=== PATIENT | female | born 1935 | race Caucasian/White ===

== ENCOUNTER → 2020-05-06 12:34 | Outpatient (CLI) | payer MEDICARE, OTHER, SELFPAY ==
--- NOTE | 2020-05-06 | DI.MRI.S_ITS ---
PROCEDURE: MR HAND RT WO CON INDICATIONS: Pain in right hand TECHNIQUE: Noncontrast coronal T1 spin echo and T2 axial fat sat sequences were obtained. Patient is unable to complete the exam due to pain. COMPARISON: [facility] [place], CR, XR HAND 3+ VIEWS RIGHT, 04/27/2020, 8:45. FINDINGS: Image quality: Limited. Bones: Moderate osteoarthritic changes throughout right hand and wrist are seen. No gross marrow edema. No evidence of acute fracture or dislocation. No suspicious intraosseous lesion. Soft tissues: There is mild soft tissue swelling and edema over dorsal and radial aspect of right hand. No gross full-thickness flexor or extensor tendon rupture. Limited evaluation of right hand ligaments shows no definite full-thickness rupture. Visualized muscles demonstrate normal bulk and internal signal. No intramuscular masses identified. No ganglion cysts. IMPRESSION: 1. Limited study due to poor patient tolerance. Only 2 series were obtained. 2. No gross acute fracture or dislocation. 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 3. Mild dorsal right hand and wrist soft tissue swelling. No discrete drainable fluid collection. No full-thickness tendon rupture. Dictated by: Mateus Bustamante M.D. on 05/06/2020 at 15:02 Approved by: Mateus Bustamante M.D. on 05/06/2020 at 15:08
== END ==
PROVIDERS: PCP Registered Nurse Women's Health Care, Ambulatory; Referring Provider Orthopaedic Surgery Foot and Ankle Surgery; Visit Provider Orthopaedic Surgery Foot and Ankle Surgery
DX: M79.641 Pain in right hand (principal); M79.89 Other specified soft tissue disorders
CPT/HCPCS: 73218

== ENCOUNTER 2023-03-09 18:41 | Emergency (ER) | payer MEDICARE, OTHER, SELFPAY ==
[2023-03-09 18:44] VITALS: BP 117/59; PULSE 100; RESP 15; TEMP 36.9; O2SAT 94; BMI 28.1
--- NOTE | 2023-03-09 19:04 | ED_ITS ---
HPI - Recheck/Abnormal Lab/Rx <Janene Nolen PA-C - Last Filed: 03/09/23 19:08> General Chief Complaint: Recheck/Abnormal Lab/Rx Stated Complaint: Shaking ep. earlier today Time Seen by Provider: 03/09/23 19:04 Source: patient Mode of arrival: Ambulatory History of Present Illness HPI narrative: Patient is an 87-year-old female who was feeling well this morning went and played pickleball but then later in the day had an episode of severe shaking of her upper extremities it lasted for 45 minutes. The shaking was so severe that she could not use her cell phone. After this she felt like she should lay down and take a nap but she could not fall asleep. This episode was very unnerving for her. Overall she feels a little lightheaded and a little fatigued but not unwell. She denies fever or chills, respiratory symptoms, chest pain, nausea vomiting, urinary symptoms. Related Data Previous Rx's Medication Instructions Recorded cephalexin 500 mg capsule 500 mg PO BID 7 days #14 caps 03/09/23 Allergies Allergy/AdvReac Type Severity Reaction Status Date / Time No Known Drug Allergies Allergy Verified 03/09/23 18:44 Review of Systems <Janene Nolen PA-C - Last Filed: 03/09/23 19:08> Review of Systems ROS Unobtainable: All systems reviewed & are unremarkable except as noted in HPI and below Patient History <Janene Nolen PA-C - Last Filed: 03/09/23 19:08> Social History Smoking Status: Unknown if ever smoked Smoking Status: Unknown if ever smoked alcohol intake frequency: holidays/special occasions only Substance Use Type: does not use Exam <Janene Nolen PA-C - Last Filed: 03/09/23 19:08> Narrative Exam Narrative: GENERAL: 87 year old patient appears stated age. Well-developed patient, in no d istress. NEURO: Patient is alert and oriented x3 and with normal mood and affect. Cranial nerves II through XII are intact and there is no appreciable numbness or weakness. No pronator drift, steady gait. HEAD: Atraumatic. Normocephalic. EYES: Pupils equal round and reactive. Extraocular motions intact. No scleral icterus. No injection or drainage. ENT: Nose without bleeding or purulent drainage. CARDIOVASCULAR: Regular rate and rhythm without murmurs, gallops, or rubs. RESPIRATORY: Clear to auscultation. Breath sounds equal bilaterally. No wheezes, rales, or rhonchi. EXTREMITIES: No edema or joint tenderness. SKIN: No rash or erythema of visible areas Initial Vital Signs Initial Vital Signs: Vital Signs Temperature 98.4 F 03/09/23 18:44 Pulse Rate 100 H 03/09/23 18:44 Respiratory Rate 15 03/09/23 18:44 Blood Pressure 117/59 L 03/09/23 18:44 Pulse Oximetry 94 03/09/23 18:44 Oxygen Delivery Method Room Air 03/09/23 18:44 <Roxanne Miller DO - Last Filed: 03/10/23 06:10> Initial Vital Signs Initial Vital Signs: Vital Signs Temperature 98.4 F 03/09/23 18:44 Pulse Rate 100 H 03/09/23 18:44 Respiratory Rate 15 03/09/23 18:44 Blood Pressure 117/59 L 03/09/23 18:44 Pulse Oximetry 94 03/09/23 18:44 Oxygen Delivery Method Room Air 03/09/23 18:44 Course <Janene Nolen PA-C - Last Filed: 03/09/23 19:08> Orders Ordered: Discontinued Medications Cephalexin HCl (Cephalexin 250 Mg Capsule) 500 mg PO NOW ONE Stop: 03/09/23 22:07 Last Admin: 03/09/23 22:20 Dose: 500 mg Documented By: AP Vital Signs Vital signs: Vital Signs - 8 hr 03/09/23 22:19 Pulse Rate 86 Respiratory Rate 16 Blood Pressure 96/55 L Pulse Oximetry 96 Oxygen Delivery Method Room Air <Roxanne Miller DO - Last Filed: 03/10/23 06:10> Orders Ordered: Discontinued Medications Cephalexin HCl (Cephalexin 250 Mg Capsule) 500 mg PO NOW ONE Stop: 03/09/23 22:07 Last Admin: 03/09/23 22:20 Dose: 500 mg Documented By: AP Vital Signs Vital signs: Vital Signs - 8 hr 03/09/23 22:19 Pulse Rate 86 Respiratory Rate 16 Blood Pressure 96/55 L Pulse Oximetry 96 Oxygen Delivery Method Room Air MDM - Recheck/Abnormal Lab/Rx <Janene Nolen PA-C - Last Filed: 03/09/23 19:08> Lab Data 03/09/23 19:38 03/09/23 19:38 Labs: Lab Results 03/09/23 03/09/23 03/09/23 Range/Units 19:38 19:38 20:26 WBC 13.2 H (4.5-11.0) X10^3/uL RBC 4.41 (4.0-5.2) X10^6/uL Hgb 13.0 (12.0-16.0) g/dL Hct 38.2 (36-46) % MCV 86.6 (80-100) fL MCH 29.6 (26-34) PG MCHC 34.2 (30-36) % RDW 13.1 (11.6-14.8) % Plt Count 184 (150-400) X10^3/uL Neut % (Auto) 97.6 H (50-75) % Lymph % (Auto) 1.0 L (25-40) % [place] % (Auto) 1.0 L (3-14) % Eos % (Auto) 0.3 L (2-4) % Baso % (Auto) 0.1 (0-2) % Neut # (Auto) 92576 H (7447-5991) /uL Lymph # (Auto) 100 L (2060-0652) /uL [place] # (Auto) 100 (0-900) /uL Eos # (Auto) 0 (0-450) /uL Baso # (Auto) 0 (0-100) /uL Sodium 133 L (137-145) mmol/L Potassium 3.4 (3.4-5.1) mmol/L Chloride 101 (98-107) mmol/L Carbon Dioxide 24 (22-32) mmol/L BUN 23 H (7-17) mg/dL Creatinine 0.84 (0.52-1.04) mg/dL Estimated GFR > 60 (>60) mL/min BUN/Creatinine Ratio 27.4 H (6-22) Glucose 142 H (80-110) mg/dL Calcium 8.7 (8.4-10.2) mg/dL Urine RBC 1-5/hpf (0-5/HPF) Urine WBC 30-100/hpf H (0-5/HPF) Ur Squamous Epith Cells 1-5 /hpf (0-5/HPF) Urine Bacteria Many (>30) H (None) Urine Mucus 1+ H (Negative) Ur Culture Indicated? Specimen cultured Urine Dip Bedside Urine Glucose Negative Bedside Urine Bilirubin - Negative Bedside Urine Ketone - Negative Urine Specific [place] 1.015 Bedside Urine Occult Blood ++ Bedside Urine pH 6.0 Bedside Urine Protein +/- 15 Bedside Urine Urobilinogen - Negative Bedside Urine Nitrite + Positive Bedside Urine Leukocytes +++ 500 Esterase MDM Narrative Medical decision making narrative: Multiple etiologies for patient's symptoms considered including, but not limited to: Viral illness, respiratory illness, UTI, dehydration. We will check CBC for signs of infection, chemistry for electrolyte imbalance and hydration status, UA to assess for urinary tract infection which may cause arrange of symptoms in an older adults. Overall this patient looks very well and is an excellent historian. She takes no daily medications although she took an Aleve earlier today after this incident. Her physical exam is very reassuring. Patient's symptoms improved over duration of stay with above-stated therapies. Findings and discharge diagnosis discussed with patient/family followed by verbalization of understanding Return precautions discussed with patient/family whom verbalize understanding of diagnosis and plan <Roxanne Miller, DO - Last Filed: 03/10/23 06:10> Lab Data Labs: Lab Results 03/09/23 03/09/23 03/09/23 Range/Units 19:38 19:38 20:26 WBC 13.2 H (4.5-11.0) X10^3/uL RBC 4.41 (4.0-5.2) X10^6/uL Hgb 13.0 (12.0-16.0) g/dL Hct 38.2 (36-46) % MCV 86.6 (80-100) fL MCH 29.6 (26-34) PG MCHC 34.2 (30-36) % RDW 13.1 (11.6-14.8) % Plt Count 184 (150-400) X10^3/uL Neut % (Auto) 97.6 H (50-75) % Lymph % (Auto) 1.0 L (25-40) % [place] % (Auto) 1.0 L (3-14) % Eos % (Auto) 0.3 L (2-4) % Baso % (Auto) 0.1 (0-2) % Neut # (Auto) 65333 H (3765-2436) /uL Lymph # (Auto) 100 L (7591-8321) /uL [place] # (Auto) 100 (0-900) /uL Eos # (Auto) 0 (0-450) /uL Baso # (Auto) 0 (0-100) /uL Sodium 133 L (137-145) mmol/L Potassium 3.4 (3.4-5.1) mmol/L Chloride 101 (98-107) mmol/L Carbon Dioxide 24 (22-32) mmol/L BUN 23 H (7-17) mg/dL Creatinine 0.84 (0.52-1.04) mg/dL Estimated GFR > 60 (>60) mL/min BUN/Creatinine Ratio 27.4 H (6-22) Glucose 142 H (80-110) mg/dL Calcium 8.7 (8.4-10.2) mg/dL Urine RBC 1-5/hpf (0-5/HPF) Urine WBC 30-100/hpf H (0-5/HPF) Ur Squamous Epith Cells 1-5 /hpf (0-5/HPF) Urine Bacteria Many (>30) H (None) Urine Mucus 1+ H (Negative) Ur Culture Indicated? Specimen cultured Urine Dip Bedside Urine Glucose Negative Bedside Urine Bilirubin - Negative Bedside Urine Ketone - Negative Urine Specific [place] 1.015 Bedside Urine Occult Blood ++ Bedside Urine pH 6.0 Bedside Urine Protein +/- 15 Bedside Urine Urobilinogen - Negative Bedside Urine Nitrite + Positive Bedside Urine Leukocytes +++ 500 Esterase MDM Narrative Medical decision making narrative: Multiple etiologies for patient's symptoms considered including, but not limited to: Viral illness, respiratory illness, UTI, dehydration. We will check CBC for signs of infection, chemistry for electrolyte imbalance and hydration status, UA to assess for urinary tract infection which may cause arrange of symptoms in an older adults. Overall this patient looks very well and is an excellent historian. She takes no daily medications although she took an Aleve earlier today after this incident. Her physical exam is very reassuring. Patient's symptoms improved over duration of stay with above-stated therapies. Findings and discharge diagnosis discussed with patient/family followed by verbalization of understanding Return precautions discussed with patient/family whom verbalize understanding of diagnosis and plan 03/09/23 Mank: Patient signed out to myself by KRYS Nolen. Patient seen and evaluated by myself, no reported daily medications, no known medical issues. Patient describes shaking rigors earlier today with no additional symptoms currently. She would some mild nausea which she states was resolved by asher pranay. Patient states she is feeling better than when she arrived. Patient's urine just nitrate positive, +500 leukocytes. Thirty 100 WBCs with many bacteria. Patient does have a mild leukocytosis at 13.2 with normal hemoglobin, platelets are appropriate of 184, leftward shift no bandemia noted. Creatinine is appropriate with sodium 133. Patient's heart rates 87 blood pressure is slightly low at 90 4/53 on repeat. Patient states she is otherwise feeling very well, she is well-appearing. No persistent tachycardia. Reviewed patient's labs, urinary changes and she would like to return home. Was given a dose of oral antibiotic here in the department with strict return precautions we discus sed patient can get quite ill from UTIs and should return if feeling any worse at any time. Discharge Plan Departure Patient Disposition: Home Clinical Impression: Acute UTI Instructions: DI for Urinary Tract Infection (UTI) Activity Restrictions/Additional Instructions: Follow-up with your physician for recheck if your symptoms are not significantly improving in the next 24-48 hours. Take antibiotics until completed. Prescription sent to [facility] in [place]. Please return for fevers, new chest pain, shortness of breath, vomiting, abdominal back or flank pain, weakness, black or bloody stools or other new or concerning changes Prescriptions: New cephalexin 500 mg capsule 500 mg PO BID 7 Days Qty: 14 0RF Referrals: Keila Swain ARNP [Primary Care Provider] - Stand Alone Forms: Patient Portal/API
--- NOTE | 2023-03-09 19:11 | DI.CT.S_ITS ---
PROCEDURE: CT HEAD/BRAIN WO CON INDICATIONS: shaking earlier today TECHNIQUE: Noncontrast 4.5 mm thick angled axial sections acquired from the foramen magnum to the vertex, with coronal and sagittal reformats. For radiation dose reduction, the following was used: automated exposure control, adjustment of mA and/or kV according to patient size. COMPARISON: None. FINDINGS: Image quality: Excellent. CSF spaces: Basal cisterns are patent. No extra-axial fluid collections. The ventricles are symmetric in size and shape. Brain: No intracranial bleeds or masses. There is cerebral volume loss for age, with resultant ventricular and sulcal prominence. There are periventricular and deep white matter chronic small vessel ischemic changes. There is intracranial internal carotid artery atherosclerosis. Skull and face: Calvarium and visualized facial bones appear intact, without suspicious lesions. Sinuses: Visualized sinuses and mastoids are clear. IMPRESSION: 1. CT head without acute intracranial abnormalities or acute calvarial fractures. 2. Age-related senescent changes and sequela of chronic small vessel ischemic disease. Dictated by: John Cardenas M.D. on 03/09/2023 at 19:59 Approved by: John Cardenas M.D. on 03/09/2023 at 19:59
[2023-03-09 19:48] LABS: Add Manual Diff / Slide Review NO; Basophils Absolute Auto 0 /uL (0-100); Basophils Percent Auto 0.1 % (0-2); Eosinophils Absolute Auto 0 /uL (0-450); Eosinophils Percent Auto 0.3 % (2-4); Hematocrit 38.2 % (36-46); Lymphocytes Absolute Auto 100 /uL (1100-4500); Mean Corpuscular HGB Conc 34.2 % (30-36); Mean Corpuscular Hemoglobin 29.6 PG (26-34); Mean Corpuscular Volume 86.6 fL (80-100); Monocytes Absolute Auto 100 /uL (0-900); Neutrophils Absolute Auto 12900 /uL (1500-7000); Neutrophils Percent Auto 97.6 % (50-75); Platelet Count 184 X10^3/uL (150-400); Red Blood Cell Count 4.41 X10^6/uL (4.0-5.2); Red Cell Distribution Width 13.1 % (11.6-14.8); White Blood Cell Count 13.2 X10^3/uL (4.5-11.0)
[2023-03-09 20:19] LABS: BUN Creatinine Ratio 27.4 (6-22); Blood Urea Nitrogen 23 mg/dL (7-17); Calcium 8.7 mg/dL (8.4-10.2); Carbon Dioxide 24 mmol/L (22-32); Chloride 101 mmol/L (98-107); Estimated Glomerular Filt Rate > 60 mL/min (>60); Glucose 142 mg/dL (80-110); HEMOLYSIS < 15 (0-50); Potassium 3.4 mmol/L (3.4-5.1); Sodium 133 mmol/L (137-145)
[2023-03-09 21:12] LABS: Bacteria Urine Many (>30); Mucus Urine 1+ (Negative); RBC Urine 1-5/HPF (0-5/HPF); Squamous Epithelial Cell Urine 1-5 /HPF (0-5/HPF); WBC Urine 30-100/HPF (0-5/HPF)
[2023-03-09 21:13] LABS: Culture Indicated Urine Specimen Cultured
[2023-03-09 21:17] VITALS: BP 94/53; PULSE 87; O2SAT 95
[2023-03-09 22:19] VITALS: BP 96/55; PULSE 86; RESP 16; O2SAT 96
[2023-03-09] MEDS: cephALEXin 250 MG CAPSULE 500 MG PO (22:20)
== END 2023-03-09 22:26 | disposition home or self-care (01) ==
PROVIDERS: Physician Assistant; Emergency Provider Emergency Medicine; PCP Registered Nurse Women's Health Care, Ambulatory
DX: N39.0 Urinary tract infection, site not specified (principal)
CPT/HCPCS: 36415; 70450; 80048; 81003; 81015; 85025; 87077; 87086; 87186; 99283; 99284